=== PATIENT | male | born 1970 | race Caucasian/White ===

== ENCOUNTER 2017-12-15 04:47 | Emergency (ER) | payer MEDICAID ==
[~2017-12-15] VITALS: Ht 182.9 cm; Wt 140.7 kg
[~2017-12-15 04:47] MED LIST: PROM25SU8 PO
[2017-12-15 04:55] VITALS: BP 185/98; PULSE 76; TEMP 97.7; O2SAT 96
--- NOTE | 2017-12-15 05:09 | PD ---
HPI Chief Complaint: cough Time Seen by Provider: 05:17 Travel History International Travel<30 days: No Contact w/Intl Traveler<30days: No Traveled to known affect area: No History of Present Illness HPI 47-year-old male came to the emergency room today because he suddenly woke up at 3 and the morning coughing and could not stop coughing for almost half an hour. Eventually the cough has subsided but it did worry him. For past 1 week he has been sick with flulike symptoms. These were of fever, body aches, cough and just not feeling well. He called his primary care doctor last Thursday and over the phone after listening to his symptoms he was started on Tamiflu. Patient has one more day left for Tamiflu. Patient has been afebrile in triage and vital signs are overall within acceptable limits. Patient did not take any antipyretics prior to coming in. Patient otherwise claims to be a healthy individual. PFSH Past Medical History Narrative Medical List of his past medical, surgical, social and family history is reviewed from the nursing note. Diminished Hearing: No Gastrointestinal Disorders: Yes (CELIAC) Neurologic: Yes (CATARACTS) Immunizations Current: Yes Social History Alcohol Use: Yes (OCCASIONAL) Tobacco Use: No Substance Use: No Allergies-Medications (Allergen,Severity, Reaction): Coded Allergies: No Known Allergies (Verified Adverse Reaction, Unknown, 12/15/17) Comments No known drug allergies. Reported Meds & Prescriptions Reported Meds & Active Scripts Active Reported Guaifenesin-Codeine Liq 100-10 Mg/5 Ml Soln 10 Ml PO Q4H PRN Tamiflu (Oseltamivir Phosphate) 75 Mg Cap 75 Mg PO BID Narrative Medication List of his home medications reviewed from the nursing note. Review of Systems Except as stated in HPI: all other systems reviewed are Neg Respiratory: Positive: Cough Physical Exam Narrative GENERAL: Awake, alert, obese, moderate distress, disheveled SKIN: Focused skin assessment warm/dry. HEAD: Atraumatic. Normocephalic. EYES: Pupils equal and round. No scleral icterus. No injection or drainage. ENT: No nasal bleeding or discharge. Mucous membranes pink and moist. NECK: Trachea midline. No JVD. CARDIOVASCULAR: Regular rate and rhythm. No murmur appreciated. RESPIRATORY: No accessory muscle use. Clear to auscultation. Breath sounds equal bilaterally. GASTROINTESTINAL: Abdomen soft, non-tender, nondistended. Hepatic and splenic margins not palpable. MUSCULOSKELETAL: No obvious deformities. No clubbing. No cyanosis. No edema. NEUROLOGICAL: Awake and alert. No obvious cranial nerve deficits. Motor grossly within normal limits. Normal speech. PSYCHIATRIC: Appropriate mood and affect; insight and judgment normal. Data Data Last Documented VS Vital Signs Date Time Temp Pulse Resp B/P (MAP) Pulse Ox O2 Delivery O2 Flow Rate FiO2 12/15/17 06:34 68 18 141/82 (101) 95 12/15/17 05:14 Room Air 12/15/17 04:55 97.7 Orders Orders Chest, Pa & Lat (12/15/17 ) Influenzae A/B Antigen (12/15/17 05:27) Acetamin-Codeine 120-12 Liq (Tylenol - C (12/15/17 05:30) Ed Discharge Order (12/15/17 06:16) MDM Medical Decision Making Medical Screen Exam Complete: Yes Emergency Medical Condition: Yes Medical Record Reviewed: Yes Differential Diagnosis Influenza, pneumonia, bronchitis, viral illness Narrative Course 5:33 AM awaiting for the chest x-ray and influenza test to be done and resulted. Patient was given Tylenol with Codeine elixir for the cough. 6:15 AM chest x-ray is negative for any infiltrate or any other abnormality as per the radiologist. I'll discharge him home. Procedures EKG Prior to Arrival: No Diagnosis Primary Impression: Viral illness Additional Impression: Cough Referrals: Primary Care Physician Additional Instructions: Return to the ER if condition worsens or any other new concerns. Otherwise follow-up with your primary care. Take Tylenol/Motrin/ibuprofen/Advil for fever and pain. Warm tea with honey would be helpful. Disposition: 01 DISCHARGE HOME Condition: Stable Elia Garcia MD Dec 15, 2017 05:09
[2017-12-15 05:10] VITALS: BP 119/80; PULSE 67; RESP 20; O2SAT 97
[2017-12-15] MEDS ORDERED: GUAI100S5 PO (05:20)
[2017-12-15] MEDS ORDERED: OSEL75 PO (05:20)
[2017-12-15] MEDS ORDERED: ACETAMINOPHEN/CODEINE ELIX 120 MG/12 MG/5 ML CUP PO ONE (05:30)
--- NOTE | 2017-12-15 06:03 | RADRPT ---
EXAM DATE/TIME: 12/15/2017 05:32 [facility] COMPARISON: No previous studies available for comparison. INDICATIONS : Cough, congestion, and fever. MEDICAL HISTORY : None. SURGICAL HISTORY : None. ENCOUNTER: Initial ACUITY: 4 - 6 days PAIN SCORE: 2/10 LOCATION: Bilateral chest FINDINGS: PA and lateral views of the chest demonstrate the lungs to be symmetrically aerated without evidence of mass, infiltrate or effusion. The cardiomediastinal contours are unremarkable. Osseous structure s are intact. CONCLUSION: No acute disease. Weston Oliveros MD on December 15, 2017 at 6:01 Board Certified Radiologist. This report was verified electronically.
[2017-12-15 06:34] VITALS: BP 141/82
== END 2017-12-15 06:35 | disposition home or self-care (01) ==
LOC: PHED 04:47
DX: B34.9 Viral infection, unspecified (principal); R05 Cough
CPT/HCPCS: 71046; 87804; 99284

== ENCOUNTER 2018-02-27 07:47 | Emergency (ER) | payer OTHER, MEDICAID ==
[~2018-02-27] VITALS: Ht 182.9 cm; Wt 137.0 kg
[~2018-02-27 07:47] MED LIST changes: +GUAI100S5 PO; +OSEL75 PO; -PROM25SU8 PO
[2018-02-27 07:51] VITALS: BP 176/99; PULSE 71; RESP 16; TEMP 98; O2SAT 97
[2018-02-27] MEDS ORDERED: NABU1TAB37 PO (08:48)
[2018-02-27] MEDS ORDERED: CYCL10TA PO (08:48)
--- NOTE | 2018-02-27 08:49 | PD ---
HPI . Thigh pain Chief Complaint: Pain: Acute or Chronic Time Seen by Provider: 08:11 Travel History International Travel<30 days: No Contact w/Intl Traveler<30days: No Traveled to known affect area: No History of Present Illness HPI Patient presents with chief complaint of right thigh pain. Onset was 2 days ago. It was worse yesterday than it was the day before. He states that his pain is exacerbated by movement especially back flexion, hip flexion and knee extension. There has been no known injury. He states that he has no pain when he is at rest. Pain is a 6 with standing and movement. Pain has been unrelieved by [id number] ibuprofen. He estimates taking 1000 mg of ibuprofen over the course of the entire day yesterday. PFSH Past Medical History Hx Anticoagulant Therapy: No Arthritis: Yes (neck/back) Diabetes: No Diminished Hearing: No Gastrointestinal Disorders: Yes (CELIAC) Neurologic: Yes (CATARACTS) Immunizations Current: Yes Social History Alcohol Use: Yes (OCCASIONAL) Tobacco Use: No Substance Use: No Allergies-Medications (Allergen,Severity, Reaction): Coded Allergies: No Known Allergies (Verified Adverse Reaction, Unknown, 02/27/18) Reported Meds & Prescriptions Reported Meds & Active Scripts Active No Active Prescriptions or Reported Medications Review of Systems Except as stated in HPI: all other systems reviewed are Neg Musculoskeletal: Positive: Myalgias Physical Exam Narrative GENERAL: Awake and alert and in no acute distress. SKIN: Warm and dry. Normal color and skin temperature. HEAD: Normocephalic/atraumatic. EYES: Pupils are equal. Extraocular movements are intact. NECK: Normal range of motion. CARDIOVASCULAR: Regular rate and rhythm. RESPIRATORY: Nonlabored respirations. MUSCULOSKELETAL: Right thigh has some diffuse tenderness to palpation in the musculature of both the hamstrings and the quadriceps. There is no tenderness of the hip or knee joints and no pain with manipulation of those joints. His skin color is normal. There is no swelling. He is distally neurovascularly intact. NEUROLOGICAL: Nonfocal. PSYCHIATRIC: Appropriate mood and affect. Data Data Last Documented VS Vital Signs Date Time Temp Pulse Resp B/P (MAP) Pulse Ox O2 Delivery O2 Flow Rate FiO2 02/27/18 07:51 98.0 71 16 176/99 (124) 97 MDM Medical Decision Making Medical Screen Exam Complete: Yes Emergency Medical Condition: Yes Differential Diagnosis Differential diagnosis of leg pain includes but is not limited to lumbar radiculopathy, arthritis, myalgias, DVT. Narrative Course This patient presents with atraumatic right thigh pain. His pain is clearly muscular based on both his history and physical exam. I will discharge him to home with prescriptions for Relafen and Flexeril. Discontinue the ibuprofen while taking Relafen. Try using a heating pad. Return here as needed. Diagnosis Primary Impression: Muscle strain of right thigh Qualified Codes: S76.911A - Strain of unspecified muscles, fascia and tendons at thigh level, right thigh, initial encounter Patient Instructions: General Instructions, Muscle Strain (DC) Additional Instructions: Do not take ibuprofen while taking the nabumetone. Try a heating pad. Med/Other Pt SpecificInfo: Prescription(s) given Scripts Cyclobenzaprine (Flexeril) 10 Mg Tab 10 MG PO TID for Muscle Spasm, #90 TAB 0 Refills Prov: Lina Tee MD 02/27/18 Nabumetone (Nabumetone) 500 Mg Tab 500 MG PO BID for Pain-Inflammation, #60 TAB 0 Refills Prov: Lina Tee MD 02/27/18 Disposition: 01 DISCHARGE HOME Condition: Stable Lina Tee MD Feb 27, 2018 08:49
== END 2018-02-27 09:13 | disposition home or self-care (01) ==
LOC: PHED 07:47
DX: S76.911A Strain of unspecified muscles, fascia and tendons at thigh level, right thigh, initial encounter (principal); X58.XXXA Exposure to other specified factors, initial encounter
CPT/HCPCS: 99283